=== PATIENT | male | born 1990 | race Two or more races ===

== ENCOUNTER 2018-12-30 11:55 | Emergency (ER) | payer MEDICAID, OTHER ==
[~2018-12-30] VITALS: Ht 165.1 cm; Wt 79.0 kg
[2018-12-30 12:33] VITALS: BP 160/95
--- NOTE | 2018-12-30 13:10 | NUR ---
Patient/Caregiver given discharge instructions and they have confirmed that they understand the instructions. Patient ambulatory with steady gait.
== END 2018-12-30 13:11 | disposition home or self-care (01) ==
LOC: ED 13:03
DX: K08.89 Other specified disorders of teeth and supporting structures (principal)
CPT/HCPCS: 99283

== ENCOUNTER 2019-05-13 14:51 | Emergency (ER) | payer MEDICAID ==
[~2019-05-13] VITALS: Ht 165.1 cm; Wt 80.1 kg
[2019-05-13 15:01] VITALS: BP 148/78
== END 2019-05-13 16:12 | disposition home or self-care (01) ==
LOC: ED 16:06
DX: S93.491A Sprain of other ligament of right ankle, initial encounter (principal); X58.XXXA Exposure to other specified factors, initial encounter; Y93.89 Activity, other specified; Y92.89 Other specified places as the place of occurrence of the external cause; Y99.8 Other external cause status
CPT/HCPCS: 99283